=== PATIENT | female | born 1965 | race Caucasian/White ===

== ENCOUNTER 2020-01-19 20:11 | Emergency (ER) | payer OTHER ==
[~2020-01-19] VITALS: Ht 157.5 cm; Wt 84.8 kg
[2020-01-19] MEDS ORDERED: SODIUM CHLORIDE 0.9% 1000ML 1,000 ML IV ONE (20:45)
[2020-01-19 21:07] LABS: BASOPHILS % 0.9 % (0.0-1.0); EOSINOPHILS % 4.8 % (0.0-6.0); HEMATOCRIT 41.1 % (34.2-44.1); HEMOGLOBIN 13.7 g/dL (12.0-16.0); LYMPHOCYTES # (AUTO) 0.9 (1.0-3.2); LYMPHOCYTES % 16.1 % (18.0-39.1); MEAN CORPUSCULAR HEMOGLOBIN 29.4 pg (28-32); MEAN CORPUSCULAR HGB CONC 33.3 g/dL (31-35); MEAN CORPUSCULAR VOLUME 88.2 fL (81-99); NEUTROPHILS # (AUTO) 3.8 (2.1-6.9); PLATELET COUNT 220 x10e3/uL (140-360); RED BLOOD COUNT 4.66 x10e6/uL (3.6-5.1); RED CELL DISTRIBUTION WIDTH 13.2 % (11.7-14.4)
[2020-01-19 21:08] LABS: BASOPHILS # (AUTO) 0.1 (0.0-0.1); EOSINOPHILS # (AUTO) 0.3 (0.0-0.4); MONOCYTES # (AUTO) 0.4 (0.2-0.8)
--- NOTE | 2020-01-19 21:15 | Emergency Department Note ---
History of Present Illnes History of Present Illness Chief Complaint: Headache History of Present Illness This is a 54 year old female PT WITH C/O DIZZINESS SINCE WEDNESDAY, STATES STARTED PHENTERMINE THAT DAY. ALSO STATES SHE HAS BEEN FASTING LSAT COUPLE OF DAYS WELL TO LOSE WEIGHT, PT ALSO WITH HEADACHE FOR PAST 1 HOUR WELL. . Historian: Patient Arrival Mode: Car Onset (how long ago): day(s) (3) Location: HEAD Quality: DIZZY, HEADACHES, Radiation: Reports non-radiation Severity: mild Onset quality: gradual Duration (how long): day(s) (3) Timing of current episode: constant Progression: worsening Chronicity: new Context: Reports new medications (PHENTERMINE); Denies recent illness, Denies recent surgery, Denies recent travel Relieving factors: none Exacerbating factors: none Associated symptoms: Reports headaches, Reports malaise, Reports weakness, R eports other (DIZZINESS) Past Medical/Family History Physician Review I have reviewed the patient's past medical and family history. Any updates have been documented here. Past Medical History Recent Fever: No Clinical Suspicion of Infectio: No New/Unexplained Change in Ment: No Past Medical History: Anxiety Other Surgery: gastric sleeve Physical Exam Related Data Allergies: Coded Allergies: No Known Allergies (Unverified , 01/23/11) Triage Vital Signs Vital Signs Date Time Temp Pulse Resp B/P (MAP) Pulse Ox O2 Delivery O2 Flow Rate FiO2 01/19/20 20:34 98.2 88 20 96/62 100 Room Air Physical Exam CONSTITUTIONAL HENT EYES NECK PULMONARY CARDIOVASCULAR GASTROINTESTINAL GENITOURINARY SKIN MUSCULOSKELETAL NEUROLOGICAL PSYCHOLOGICAL Results Laboratory Result Diagram: 01/19/202054 Laboratory Laboratory Tests Test 01/19/20 20:56 01/19/20 20:55 Urine Color Yellow (YELLOW) Urine Clarity Sl cloudy (CLEAR) Urine pH 9 (5 - 7) Urine Specific [place] 1.020 (1.010-1.025) Urine Protein Negative (NEGATIVE) Urine Glucose (UA) Negative (NEGATIVE) Urine Ketones 2+ (NEGATIVE) Urine Blood Negative (NEGATIVE) Urine Nitrite Negative (NEGATIVE) Urine Bilirubin Negative (NEGATIVE) Urine Urobilinogen 0.2 mg/dL (0.2 - 1) Urine Leukocyte Esterase Negative (NEGATIVE) Urine RBC None /HPF (0-5) Urine WBC None /HPF (0-5) Urine Epithelial Cells None /LPF (NONE) Urine Amorphous Sediment Moderate (FEW) Urine Bacteria None /HPF (NONE) White Blood Count 5.39 x10e3/uL (4.8-10.8) Red Blood Count 4.66 x10e6/uL (3.6-5.1) Hemoglobin 13.7 g/dL (12.0-16.0) Hematocrit 41.1 % (34.2-44.1) Mean Corpuscular Volume 88.2 fL (81-99) Mean Corpuscular Hemoglobin 29.4 pg (28-32) Mean Corpuscular Hemoglobin Concent 33.3 g/dL (31-35) Red Cell Distribution Width 13.2 % (11.7-14.4) Platelet Count 220 x10e3/uL (140-360) Neutrophils (%) (Auto) 70.0 % (38.7-80.0) Lymphocytes (%) (Auto) 16.1 % (18.0-39.1) Monocytes (%) (Auto) 8.0 % (4.4-11.3) Eosinophils (%) (Auto) 4.8 % (0.0-6.0) Basophils (%) (Auto) 0.9 % (0.0-1.0) Neutrophils # (Auto) 3.8 (2.1-6.9) Lymphocytes # (Auto) 0.9 (1.0-3.2) Monocytes # (Auto) 0.4 (0.2-0.8) Eosinophils # (Auto) 0.3 (0.0-0.4) Basophils # (Auto) 0.1 (0.0-0.1) Absolute Immature Granulocyte (auto 0.01 x10e3/uL (0-0.1) Sodium Level 136 mmol/L (136-145) Potassium Level 4.0 mmol/L (3.5-5.1) Chloride Level 99 mmol/L (98-107) Carbon Dioxide Level 22 mmol/L (22-29) Anion Gap 19.0 mmol/L (8-16) Blood Urea Nitrogen 15 mg/dL (7-26) Creatinine 0.94 mg/dL (0.57-1.11) Estimat Glomerular Filtration Rate > 60 ML/MIN (60-) BUN/Creatinine Ratio 16 (6-25) Glucose Level 88 mg/dL (74-118) Calcium Level 9.7 mg/dL (8.4-10.2) Total Bilirubin 0.8 mg/dL (0.2-1.2) Aspartate Amino Transf (AST/SGOT) 24 IU/L (5-34) Alanine Aminotransferase (ALT/SGPT) 18 IU/L (0-55) Alkaline Phosphatase 79 IU/L (40-150) Creatine Kinase 71 IU/L (29-168) Creatine Kinase MB 1.00 ng/mL (0-5.0) Troponin I 0.061 ng/mL (0-0.300) Total Protein 7.5 g/dL (6.5-8.1) Albumin 3.7 g/dL (3.5-5.0) Globulin 3.8 g/dL (2.3-3.5) Albumin/Globulin Ratio 1.0 (0.8-2.0) Laboratory Tests Test 01/19/20 20:55 White Blood Count 5.39 x10e3/uL (4.8-10.8) Red Blood Count 4.66 x10e6/uL (3.6-5.1) Hemoglobin 13.7 g/dL (12.0-16.0) Hematocrit 41.1 % (34.2-44.1) Mean Corpuscular Volume 88.2 fL (81-99) Mean Corpuscular Hemoglobin 29.4 pg (28-32) Mean Corpuscular Hemoglobin Concent 33.3 g/dL (31-35) Red Cell Distribution Width 13.2 % (11.7-14.4) Platelet Count 220 x10e3/uL (140-360) Neutrophils (%) (Auto) 70.0 % (38.7-80.0) Lymphocytes (%) (Auto) 16.1 % (18.0-39.1) Monocytes (%) (Auto) 8.0 % (4.4-11.3) Eosinophils (%) (Auto) 4.8 % (0.0-6.0) Basophils (%) (Auto) 0.9 % (0.0-1.0) Neutrophils # (Auto) 3.8 (2.1-6.9) Lymphocytes # (Auto) 0.9 (1.0-3.2) Monocytes # (Auto) 0.4 (0.2-0.8) Eosinophils # (Auto) 0.3 (0.0-0.4) Basophils # (Auto) 0.1 (0.0-0.1) Absolute Immature Granulocyte (auto 0.01 x10e3/uL (0-0.1) Lab results reviewed: Yes Imaging Imaging results reviewed: Yes Impressions Procedure: [id number] DX/CHEST SINGLE (PORTABLE) Exam Date: 01/19/20 Exam Time: 2054 REPORT STATUS: Signed EXAMINATION: CHEST SINGLE (PORTABLE) INDICATION: ^dizziness COMPARISON: None FINDINGS: TUBES and LINES: None. LUNGS: Normal lung volumes. Lungs are clear. No consolidations. PLEURA: No pleural effusion or pneumothorax. HEART AND MEDIASTINUM: The cardiomediastinal silhouette is unremarkable. BONES AND SOFT TISSUES: No acute osseous lesion. Soft tissues are unremarkable. UPPER ABDOMEN: No free air under the diaphragm. IMPRESSION: No acute thoracic radiographic abnormality. Signed by: Chandrika Coronel MD on 01/19/2020 10:37 PM Dictated By: CHANDRIKA CORONEL MD 36 Transcribed By: KATARZYNA on 01/19/202236 COPY TO: ELVIRA JAY MD~ Procedure: [id number] CT/CT BRAIN WO Exam Date: 01/19/20 Exam Time: 2054 REPORT STATUS: Signed EXAMINATION: Head CT without contrast. HISTORY:Dizziness and headache. COMPARISON:None. TECHNIQUE: Multidetector axial images were obtained from the foramen magnum to the vertex without contrast. The images were reconstructed using brain and bone algorithms. Thin section brain images were reformatted into coronal and sagittal planes. Dose modulation, iterative reconstruction, and/or weight based adjustment of the mA/kV was utilized to reduce the radiation dose to as low as reasonably achievable. Intravenous contrast: None IMAGE QUALITY: Acceptable. FINDINGS: Skull/scalp: No lytic or blastic. lesions. No surgical changes. Parenchyma: No abnormal density. No acute hemorrhage, mass or acute major vascular territorial infarct. Arteries: No density suggestive of thrombosis. Dural sinuses: No abnormal density suggestive of thrombosis. Ventricles: No hydrocephalus or displacement. Extra-axial spaces: No abnormal density. Brain volume: Normal for age. Craniocervical junction: No mass, Chiari malformation, or basilar invagination. Sella: No mass. Paranasal/mastoid sinuses: Imaged portions unremarkable. IMPRESSION: No intracranial abnormality. Signed by: Dr. Juany Reese M.D. on 01/19/2020 9:32 PM Dictated By: JUANY REESE MD 31 Transcribed By: KATARZYNA on 01/19/202131 COPY TO: ELVIRA JAY MD~ Procedures 12 Lead ECG Interpretation ECG Interpretation : ECG: ECG 1 [employer] Location Manager: Interpreted by ED physician Date: Jan 19, 2020 Time: 20:42 Rhythm: sinus rhythm Rate: normal BPM: 87 QRS axis: normal ST segments normal: No ST segment flattening: V2, V3, V4 T waves normal: No T wave inversion: V2, V3, V4 Clinical Impression: abnormal ECG Assessment & Plan Medical Decision Making MDM PT WITH DIZZINESS, FATIGUE, HEADACHES THAT STARTED AFTER SHE BEGAN TAKING PHENTERMINE ON WEDNESDAY CBC, CMP, EKG, CT BRAIN , CXR, UA, CARDIAC ENZYMES ORDERED TO EVAL FOR MYOCARDIAL INFARCTION, UTI, ELECTROLYTE ABNORMALITY, INTRACRANIAL ABNORMALITY, RENAL INSUFFICIENCY NS 1 LITER IV BOLUS ORDERED PT DISCHARGED HOME ADVISED TO STOP TAKING PHENTERMINE Reassessment Reassessment time: 22:54 Reassessment PT FEELS BETTER AFTER 1 LITER NORMAL SALINE IV Assessment & Plan Final Impression: (1) Dizziness (2) Dehydration (3) Adverse effects of medication Depart Disposition: HOME, SELF-CARE Last Vital Signs Date Time Temp Pulse Resp B/P (MAP) Pulse Ox O2 Delivery O2 Flow Rate FiO2 01/19/20 20:34 98.2 88 20 96/62 100 Room Air Medications in the ED Sodium Chloride 1,000 ml @ 999 mls/hr Q1H1M ONCE IV Last administered on 01/19/20at 20:57; Admin Dose 999 MLS/HR; Start 01/19/20 at 20:45; Stop 01/19/20 at 21:45 ELVIRA JAY MD Jan 19, 2020 21:15
[2020-01-19 21:22] LABS: ALANINE AMINOTRANSFERASE 18 IU/L (0-55); ALBUMIN 3.7 g/dL (3.5-5.0); ALKALINE PHOSPHATASE 79 IU/L (40-150); BLOOD UREA NITROGEN 15 mg/dL (7-26); BUN/CREATININE RATIO 16 (6-25); CALCIUM 9.7 mg/dL (8.4-10.2); CARBON DIOXIDE 22 mmol/L (22-29); CHLORIDE 99 mmol/L (98-107); CREATINE KINASE 71 IU/L (29-168); CREATININE, SERUM 0.94 mg/dL (0.57-1.11); EST GLOMERULAR FILTRATION RATE > 60 ML/MIN (60-); GLUCOSE 88 mg/dL (74-118); SODIUM 136 mmol/L (136-145)
--- NOTE | 2020-01-19 21:35 | Diagnostic Imaging Report ---
EXAMINATION: Head CT without contrast. HISTORY:Dizziness and headache. COMPARISON:None. TECHNIQUE: Multidetector axial images were obtained from the foramen magnum to the vertex without contrast. The images were reconstructed using brain and bone algorithms. Thin section brain images were reformatted into coronal and sagittal planes. Dose modulation, iterative reconstruction, and/or weight based adjustment of the mA/kV was utilized to reduce the radiation dose to as low as reasonably achievable. Intravenous contrast: None IMAGE QUALITY: Acceptable. FINDINGS: Skull/scalp: No lytic or blastic. lesions. No surgical changes. Parenchyma: No abnormal density. No acute hemorrhage, mass or acute major vascular territorial infarct. Arteries: No density suggestive of thrombosis. Dural sinuses: No abnormal density suggestive of thrombosis. Ventricles: No hydrocephalus or displacement. Extra-axial spaces: No abnormal density. Brain volume: Normal for age. Craniocervical junction: No mass, Chiari malformation, or basilar invagination. Sella: No mass. Paranasal/mastoid sinuses: Imaged portions unremarkable. IMPRESSION: No intracranial abnormality. Signed by: Dr. Juany Reese M.D. on 01/19/2020 9:32 PM
[2020-01-19 21:36] LABS: BILIRUBIN,URINE NEGATIVE (NEGATIVE); CLARITY,URINE SL CLOUDY (CLEAR); COLOR,URINE YELLOW (YELLOW); KETONES,URINE 2+ (NEGATIVE); LEUKOCYTE ESTERASE ,URINE NEGATIVE (NEGATIVE); NITRITE,URINE NEGATIVE (NEGATIVE); PROTEIN,URINE DIPSTICK NEGATIVE (NEGATIVE); URINE UROBILINOGEN 0.2 mg/dL (0.2 - 1)
[2020-01-19 21:43] LABS: AMORPHOUS SEDIMENT,URINE MODERATE (FEW)
--- OUTSIDE RECORDS SUMMARY | 2020-01-19 21:53 | XMS REPORT | Continuity of Care Document ---
Author Author [facility] Organization [facility] Address [address] [place] [id number] Phone Unavailable Care Team Providers [employer] Sh[employer] Salesperson Name Role Phone Ezra JAY Attphys Unavailable Problems This patient has no known problems. Allergies, Adverse Reactions, Alerts This patient has no known allergies or adverse reactions. Medications This patient has no known medications. Procedures This patient has no known procedures. Results Test Description Test Time Test Comments Results Result Comments Source CT BRAIN WO 2020-01-19 21:30:00 [facility] [address] [address] Patient Name: TAYA ELENA MR #: [id number] : 1965 Age/Sex: 54/F Req #: [id number] Adm Physician: Ordered by: ELVIRA JAY MD Report #: [id number] Location: ER Room/Bed: Procedure: [id number] CT/CT BRAIN WO Exam Date: 01/19/20 Exam Time: 2054 REPORT STATUS: Signed EXAMINATION: Head CT without contrast. HISTORY:Dizziness and headache. COMPARISON:None. TECHNIQUE: Multidetector axial images were obtained from the foramen magnum to the vertex without contrast. The images were reconstructed using brain and bone algorithms. Thin section brain images were reformatted into coronal and sagittal planes. Dose modulation, iterative reconstruction, and/or weight based adjustment of the mA/kV was utilized to reduce the radiation dose to as low as reasonably achievable. Intravenous contrast: None IMAGE QUALITY: Acceptable. FINDINGS: Skull/scalp: No lytic or blastic. lesions. No surgical changes. Parenchyma: No abnormal density. No acute hemorrhage, mass or acute major vascular territorial infarct. Arteries: No density suggestive of thrombosis. Dural sinuses: No abnormal density suggestive of thrombosis. Ventricles: No hydrocephalus or displacement. Extra-axial spaces: No abnormal density. Brain volume: Normal for age. Craniocervical junction: No mass, Chiari malformation, or basilar invagination. Sella: No mass. Paranasal/mastoid sinuses: Imaged portions unremarkable. IMPRESSION: No intracranial abnormality. Signed by: Dr. Juany Reese M.D. on 01/19/2020 9:32 PM Dictated By: JUANY REESE MD 31 Transcribed By: KATARZYNA on 01/19/202131 COPY TO: ELVIRA JAY MD
--- NOTE | 2020-01-19 22:40 | Diagnostic Imaging Report ---
EXAMINATION: CHEST SINGLE (PORTABLE) INDICATION: ^dizziness COMPARISON: None FINDINGS: TUBES and LINES: None. LUNGS: Normal lung volumes. Lungs are clear. No consolidations. PLEURA: No pleural effusion or pneumothorax. HEART AND MEDIASTINUM: The cardiomediastinal silhouette is unremarkable. BONES AND SOFT TISSUES: No acute osseous lesion. Soft tissues are unremarkable. UPPER ABDOMEN: No free air under the diaphragm. IMPRESSION: No acute thoracic radiographic abnormality. Signed by: Nader Connor MD on 01/19/2020 10:37 PM
== END 2020-01-19 23:00 | disposition home or self-care (01) ==
LOC: ER 21:50
DX: E86.0 Dehydration (principal); R42 Dizziness and giddiness; R51 Headache; T50.5X5A Adverse effect of appetite depressants, initial encounter
CPT/HCPCS: 36415; 70450; 71045; 80053; 81001; 82550; 82553; 84484; 85025; 93005; 99284; J7030